=== PATIENT | female | born 1995 | race Caucasian/White ===

== ENCOUNTER → 2018-01-02 | Outpatient (CLI) | payer BC ==
[2018-01-02 18:46] LABS: PROGESTERONE 1.1 NG/ML
[2018-01-02 19:20] LABS: HCG, SERUM QUANTITATIVE 68 MIU/ML
== END ==
LOC: M SMT 12:11
DX: Z32.01 Encounter for pregnancy test, result positive (principal)
CPT/HCPCS: 84702

== ENCOUNTER → 2018-01-04 | Outpatient (CLI) | payer BC, OTHER ==
[2018-01-04 14:22] LABS: HCG, SERUM QUANTITATIVE 23 MIU/ML
== END ==
LOC: M SMT 09:56
DX: O20.9 Hemorrhage in early pregnancy, unspecified (principal); Z3A.00 Weeks of gestation of pregnancy not specified
CPT/HCPCS: 84702

== ENCOUNTER → 2018-02-27 | Outpatient (REF) | payer BC ==
[2018-02-27 13:24] LABS: HEMATOCRIT 44.1 % (36.0-47.0); HEMOGLOBIN 14.4 g/dl (12.0-15.5); MEAN CORPUSCULAR HEMOGLOBIN 28.7 pg (27.0-33.0); MEAN CORPUSCULAR HGB CONC 32.7 g/dl (32.0-36.5); MEAN CORPUSCULAR VOLUME 87.8 fl (80.0-96.0); PLATELET COUNT, AUTOMATED 237 10^3/uL (150-450); RED BLOOD COUNT 5.02 10^6/uL (4.00-5.40); RED CELL DISTRIBUTION WIDTH 14.7 % (11.5-14.5); WHITE BLOOD COUNT 7.5 10^3/uL (4.0-10.0)
[2018-02-28 11:30] LABS: RUBELLA IgG QUALITATIVE IMMUNE (IMMUNE)
[2018-02-28 11:43] LABS: HBsAg Prenatal NEGATIVE (NEGATIVE)
[2018-02-28 12:00] LABS: HIV 1&2 SCREEN CENTAUR NEGATIVE (NEGATIVE)
[2018-02-28 12:00] LABS: HEPATITIS C VIRUS ABY INDEX 0.1 INDEX (<0.8)
== END ==
LOC: M LAB REF 13:09
DX: O36.80X0 Pregnancy with inconclusive fetal viability, not applicable or unspecified (principal); Z3A.00 Weeks of gestation of pregnancy not specified

== ENCOUNTER → 2018-04-02 | Outpatient (REF) | payer BC ==
[2018-04-02 14:41] LABS: CHLAMYDIA DNA AMPLIFICATION NEGATIVE (NEGATIVE); GC DNA AMPLIFICATION NEGATIVE (NEGATIVE)
== END ==
LOC: M LAB REF 12:51
DX: Z34.81 Encounter for supervision of other normal pregnancy, first trimester (principal)
CPT/HCPCS: 87086

== ENCOUNTER 2018-05-24 14:21 | Emergency (ER) | payer BC ==
[2018-05-24 14:56] LABS: APPEARANCE, URINE HAZY (CLEAR); BACTERIA, URINE AUTO NEGATIVE (NEGATIVE); BILIRUBIN, URINE AUTO NEGATIVE (NEGATIVE); BLOOD, URINE BLOOD NEGATIVE (NEGATIVE); COLOR, URINE YELLOW (YELLOW); GLUCOSE, URINE (UA) AUTO NEGATIVE (NEGATIVE); KETONE, URINE AUTO 1+ mg/dL (NEGATIVE); LEUKOCYTE ESTERASE, URINE AUTO TRACE (NEGATIVE); MUCUS, URINE SMALL (NEGATIVE); NITRITE, URINE AUTO NEGATIVE (NEGATIVE); PROTEIN, URINE AUTO NEGATIVE (NEGATIVE); RBC, URINE AUTO 1 /HPF (0-3); SPECIFIC GRAVITY URINE AUTO 1.016 (1.002-1.035); SQUAMOUS EPITHELIAL CELL UR AU 3 /HPF (0-6); UROBILINOGEN, URINE AUTO 0.2 mg/dL (0.0-2.0); WBC, URINE AUTO 2 /HPF (0-3)
== END 2018-05-24 15:31 | disposition home or self-care (01) ==
LOC: M ED 14:21
DX: O9A.212 Injury, poisoning and certain other consequences of external causes complicating pregnancy, second trimester (principal); Y04.8XXA Assault by other bodily force, initial encounter; Y07.03 Male partner, perpetrator of maltreatment and neglect; Z3A.17 17 weeks gestation of pregnancy; O99.332 Smoking (tobacco) complicating pregnancy, second trimester; F17.210 Nicotine dependence, cigarettes, uncomplicated
CPT/HCPCS: 76811

== ENCOUNTER → 2018-08-22 | Outpatient (CLI) | payer BC ==
[2018-08-22 14:28] LABS: HEMATOCRIT 39.1 % (36.0-47.0); MEAN CORPUSCULAR HEMOGLOBIN 30.3 pg (27.0-33.0); MEAN CORPUSCULAR HGB CONC 33.2 g/dl (32.0-36.5); MEAN CORPUSCULAR VOLUME 91.1 fl (80.0-96.0); PLATELET COUNT, AUTOMATED 184 10^3/uL (150-450); RED BLOOD COUNT 4.29 10^6/uL (4.00-5.40)
== END ==
LOC: M LAB 12:56
PROVIDERS: ATTEND Obstetrics & Gynecology
DX: Z36.89 Encounter for other specified antenatal screening (principal)

== ENCOUNTER → 2018-10-02 | Outpatient (REF) | payer BC | LOC: M LAB REF 12:24 | PROVIDERS: ATTEND Obstetrics & Gynecology | DX: Z34.83 Encounter for supervision of other normal pregnancy, third trimester (principal) ==

== ENCOUNTER 2018-10-29 15:21 | Inpatient (IN) | payer BC ==
[2018-10-29] VITALS (27 sets, daily range): BP systolic 91–149; BP diastolic 51–89
[~2018-10-29] VITALS: Ht 157.5 cm; Wt 73.8 kg
[2018-10-29] MEDS ORDERED: OXYTOCIN DRIP 30 UNITS in APPROPRIATE DILUENT 1 EA IV SCH (16:00)
[2018-10-29] MEDS ORDERED: PRENTAB9 PO (16:14)
[2018-10-29 16:40] LABS: HEMATOCRIT 37.9 % (36.0-47.0); HEMOGLOBIN 12.4 g/dl (12.0-15.5); MEAN CORPUSCULAR HEMOGLOBIN 28.8 pg (27.0-33.0); MEAN CORPUSCULAR HGB CONC 32.7 g/dl (32.0-36.5); MEAN CORPUSCULAR VOLUME 87.9 fl (80.0-96.0); PLATELET COUNT, AUTOMATED 197 10^3/uL (150-450); RED BLOOD COUNT 4.31 10^6/uL (4.00-5.40); WHITE BLOOD COUNT 9.5 10^3/uL (4.0-10.0)
[2018-10-29] MEDS: LR 1,000 ML IV SCH (16:42)
--- NOTE | 2018-10-29 18:52 | HPEPDOC ---
Obstetrical History & Physical General Date of Admission Oct 29, 2018 at 17:30 Primary Care Physician: CHRIS SERRANO CNM History of Present Illness Patient is a 23-year-old female who is a at 39.1 weeks gestation with an SHIRA of 11/04/18 based off of her LMP and consistent with her 1st trimester ult rasound. She initiated care in her first trimester with [facility] and transferred care to [facility] at 38 weeks gestation. Her has been uncomplicated. She presented to L&D with complaints of SROM at 0300. She reported a moderate amount of clear fluid. She reports cramping and active movement. She denies vaginal bleeding. Chief Complaint: Active Labor, Rupture of membranes Information Provided By: Patient Age: 23 : 3 Term: 0 Pre-term: 0 Abortions: 2 Livin Care Care: Good Care Dating Final EDC: Nov 04, 2018 Final EDC by: LMP LMP: Jan 28, 2018 EGA at Admission: 39.1 Antepartum Course Height (inches): 62 Pre- weight (lbs.): 127 Admission Weight (lbs.): 168 Change in Weight (lbs.): 41 Past Medical History Past Obstetrical History : Past Obstetrical History: Primgravida CARE MANAGEMENT ASSISTANT History: Spontaneous , Theraputic Past Medical History Medical History varicose veins Surgical History: Denies/None Family History Significant Family History: Diabetes Social History Marital Status: Single Psychosocial History: No pertinent psych hx * Smoker: former Smoker Alcohol: Denies Drugs: denies Abuse Violence Screening Have you been hit/kicked/slapp: No Have you been sexually assault: No Imunizations Tdap status: current Influenza Status: current Allergies Coded Allergies: No Known Allergies (Unverified , 05/24/18) Medications Scheduled Multivitamins/ ( 27-0.8 mg) 1 Tab Tab, 1 TAB PO DAILY Physical Examination Physical Examination GENERAL: Alert and oriented times three. BREAST: . ABDOMEN: Gravid and non-tender to touch. FETUS: Is vertex (VTX) by sterile vaginal examination (SVE), fetus is vertex (VTX) by Dav. HEART RATE: Regular rate and rhythm. LUNGS: Clear to auscultation (CTA). EXTREMITIES: No edema. No clonus. Deep tendon reflexes (DTRs) + 2. Vital Signs/I&O Vital Signs Date Time Temp Pulse Resp B/P (MAP) Pulse Ox O2 Delivery O2 Flow Rate FiO2 10/29/18 18:09 98.8 70 16 118/70 (86) Laboratory Data 24H LABS Laboratory Tests 2 10/29/18 16:25: Nucleated Red Blood Cells % (auto) 0.0, Syphilis Serology NONREACTIVE 10/29/18 17:32: Serology Scanned Report Hepatitis B Testing CBC/BMP Laboratory Tests 10/29/18 16:25 Red Blood Count 4.31, Mean Corpuscular Volume 87.9, Mean Corpuscular Hemoglobin 28.8, Mean Corpuscular Hemoglobin Concent 32.7, Red Cell Distribution Width 14.4 Urine Culture: No Growth Pertinent Laboratoy Data Blood Type: O+ RBC Antibody Screen: Negative HIV: Negative Hepatitis B: Negative Hepatitis C: Negative Rapid Plasma Reagin: Nonreactive Rubella: Immune Chlamydia/Gonorrhea: Negative Group B Streptococcus: Negative Glucose Tolerance Test: 119 Vaginal Examination Dilation: 4 cm Effacement: other (75%) Station: -2 Cervical Consistency: Soft (Sterile speculum exam done: scant amount of clear fluid in vaginal canal. + nitrazine ) Cervical Position: Middle Presentation: Cephalic presentation Position: Vertex (occiput) Assessment Heart Rate (FHR): 150 Variability: Moderate Accelerations: Positive Decelerations: None Tocometer Contractions: Yes Frequency: every 1-5 min. Multi-drug resistant Organism: No history of MDRO Assessment/Plan Assessment IUP at 39.3 weeks gestation GBS negative SROM active labor GBS negative Plan Admit to L&D. Diet: clears. OOB ad diego. Group B Streptococcus (GBS) negative. Labs and intravenous (IV) per unit protocol. Counseled on augmentation of IV Pitocin. Lactated Ringers (LR): Bolus 800 mL, then at 125 mL/hr. Anesthesia consult per patient's request. Anticipate cervical change and .. CHRIS SERRANO CNM Oct 29, 2018 18:52
--- NOTE | 2018-10-29 19:00 | IPNPDOC ---
Obstetrical Progress Note Date of Service Oct 29, 2018 Subjective Patient reports she is cramping and feeling her contractions. Objective Vital Signs Date Time Temp Pulse Resp B/P (MAP) Pulse Ox O2 Delivery O2 Flow Rate FiO2 10/29/18 18:09 98.8 70 16 118/70 (86) Assessment Heart Rate (FHR): 140 Variability: Moderate Accelerations: Positive Decelerations: None Heart Rate Tracing: Category I Tocometer Contractions: Yes Frequency: regular Sterile Vaginal Examination Dilation: 4 cm (4-5 cm) Effacement (%): 80% Station: -1 Cervical Position: Anterior Postion/Presentation: Cephalic presentation Assessment and Plan Age: 23 : 3 Term: 0 Pre-term: 0 Abortions: 2 Livin EGA at Admission: 39.1 Status: Reassuring Group B Streptococcus: Negative Anticipate: Vaginal Delivery Additional Comments IV Pitocin is at 6 mu/min. AROM to forebag. Noted meconium fluid and a moderate amount of fluid. CHRIS SERRANO CNM Oct 29, 2018 19:00
[2018-10-29] MEDS ORDERED: FENTANYL 2MCG/ML ROPIVACAINE 0.2% IN 0.9% NACL 100ML IVBAG As Ordered ONE (19:32)
[2018-10-30] VITALS (20 sets, daily range): BP systolic 93–136; BP diastolic 55–80
[2018-10-30] MEDS ORDERED: REFRIGERATOR IV KEYS XX PRN (00:15)
[2018-10-30] MEDS ORDERED: ePHEDrine SULFATE 25 MG/5 ML(5MG/ML) SYRINGE IV PRN (00:15)
[2018-10-30] MEDS ORDERED: ONDANSETRON 4MG/2ML VIAL (J2405) IV PRN (00:15)
[2018-10-30] MEDS ORDERED: LACTATED RINGER'S 1000 ML IV PRN (00:15)
[2018-10-30] MEDS ORDERED: NALOXONE INJ 0.4 MG/1 ML VIAL (J2310) IV PRN (00:15)
[2018-10-30] MEDS ORDERED: FENTANYL/ROPIVACAINE/NACL BAG 100 ML EPIDURAL SCH (00:15)
[2018-10-30] MEDS ORDERED: diphenhydrAMINE INJ 50MG/ML VIAL (J1200) IV PRN (00:15)
[2018-10-30] MEDS ORDERED: EPIDURAL COMMENT XX SCH (00:15)
[2018-10-30] MEDS ORDERED: EPIDURAL/PCA KEYS XX PRN (00:15)
[2018-10-30] MEDS: LR 1,000 ML IV SCH (00:17)
[2018-10-30] MEDS ORDERED: CALCIUM CARBONATE 500 MG CHEW U/D PO PRN (02:15)
[2018-10-30] MEDS ORDERED: OXYTOCIN DRIP 30 UNITS in APPROPRIATE DILUENT 1 EA IV SCH (05:54)
[2018-10-30] MEDS ORDERED: MEASLES,MUMPS,RUBELLA VACCINE INJ (MMR-II) (90707) SC SCH (06:00)
[2018-10-30] MEDS ORDERED: DIBUCAINE 1% OINTMENT 30GM TOP PRN (06:00)
[2018-10-30] MEDS ORDERED: DOCUSATE SODIUM 100 MG CAP PO PRN (06:00)
[2018-10-30] MEDS ORDERED: RHOGAM 300 MCG (1500 IU) INJ (J2790) IM SCH (06:00)
[2018-10-30] MEDS ORDERED: METHYLERGONOVINE MALEATE 0.2 MG TAB PO PRN (06:00)
[2018-10-30] MEDS: ACETAMINOPHEN 500 MG TAB PO PRN ×2 (06:39→20:29)
[2018-10-30] MEDS ORDERED: METHYLERGONOVINE MALEATE 0.2 MG/ML VIAL (J2210) IM ONE (07:00)
--- NOTE | 2018-10-30 07:16 | DNPDOC ---
[facility] Delivery Note Delivery Note DATE OF DELIVERY: 10/30/2018 at 0447 PREDELIVERY DIAGNOSIS: 39-1/7 weeks' gestation and labor. POST DELIVERY DIAGNOSIS: Delivered. PROCEDURE: Spontaneous vaginal delivery. ELECTRONIC SCALE ASSEMBLER AND TESTER: Chris Lynch CNM, SOURAV ANESTHESIA: epidural. ESTIMATED BLOOD LOSS: 300 mL. FINDINGS: 7 pounds 2 ounces; 3240 grams; female , Score 9/9, meconium; SROM greater than 24 hours. DELIVERY SUMMARY: Patient is a 23-year-old female who is now a at 39.1 weeks who presented to L&D with complaints of SROM at 0300 on 10/29/18. Her labor was augmented with IV Pitocin. She received an epidural for pain management. It was noted that she had meconium. Dr. Haider was notified and was present for [facility]. She progressed to fully dilated at 0417 and pushed to a living female at 0447. The anterior shoulder delivered with ease and the corpus immediately followed. The baby was placed on the maternal abdomen active and crying. The cord was clamped after 1 minute and FOB cut the cord. A 3-vessel cord was noted. the baby was taken over to the warming table for Dr. Haider to access. The placenta was delivered spontaneously and intact at 0451. uterine hemostasis was achieved via rapid infusion of IV Pitocin and fundal massage. The vagina and perineum were inspected and found to have bilateral labial abrasions. The patient plans to breastfeed. She is naming her Symone. Both mom and baby are in stable condition. CHRIS LYNCH CNM Oct 30, 2018 07:16
[2018-10-30] MEDS: PRENATAL VITAMINS CHEWABLE TABLET PO SCH (09:00)
[2018-10-30] MEDS: IBUPROFEN 800 MG TAB PO PRN (16:19)
[2018-10-31 06:39] VITALS: BP 101/55
[2018-10-31] MEDS: PRENATAL VITAMINS CHEWABLE TABLET PO SCH (07:29)
[2018-10-31] MEDS: IBUPROFEN 800 MG TAB PO PRN (15:42)
[2018-10-31 18:00] VITALS: BP 123/72
[2018-11-01] MEDS: IBUPROFEN 800 MG TAB PO PRN (04:35)
[2018-11-01 06:46] VITALS: BP 94/50
[2018-11-01] MEDS ORDERED: IBUP-1114 PO (07:51)
[2018-11-01] MEDS ORDERED: MAPA500T2 PO (07:51)
[2018-11-01] MEDS: PRENATAL VITAMINS CHEWABLE TABLET PO SCH (09:54)
== END 2018-11-01 12:20 | disposition home or self-care (01) | DRG 560 ==
LOC: M LDO 15:21 → M LDI 17:30 → M OBS 10-30 08:25
PROVIDERS: ADMIT Advanced Practice Midwife; ATTEND Advanced Practice Midwife
PROC: 10E0XZZ Delivery of Products of Conception, External Approach (ICD-10-PCS; principal; 2018-10-30)
DX: O77.0 Labor and delivery complicated by meconium in amniotic fluid (principal); Z3A.39 39 weeks gestation of pregnancy; Z37.0 Single live birth

== ENCOUNTER 2018-11-23 22:11 | Emergency (ER) | payer BC ==
[~2018-11-23] VITALS: Ht 157.5 cm; Wt 63.6 kg
[~2018-11-23 22:11] MED LIST: IBUP-1114 PO; MAPA500T2 PO; PRENTAB9 PO
[2018-11-23 23:28] LABS: BASO # 0.1 10^3/uL (0.0-0.2); BASO % 0.5 % (0.0-1.0); EOS # 0.4 10^3/uL (0.0-0.50); EOS % 3.1 % (0.0-3.0); HEMATOCRIT 39.2 % (36.0-47.0); HEMOGLOBIN 12.6 g/dl (12.0-15.5); LYMPH # 3.7 10^3/uL (1.5-6.5); LYMPH % 32.9 % (24.0-44.0); MEAN CORPUSCULAR HEMOGLOBIN 28.3 pg (27.0-33.0); MEAN CORPUSCULAR HGB CONC 32.1 g/dl (32.0-36.5); MEAN CORPUSCULAR VOLUME 88.1 fl (80.0-96.0); MONO # 0.6 10^3/uL (0.0-0.8); MONO % 5.5 % (0.0-5.0); NEUTROPHILS # 6.5 10^3/uL (1.8-7.7); NEUTROPHILS % 57.7 % (36.0-66.0); PLATELET COUNT, AUTOMATED 271 10^3/uL (150-450); RED BLOOD COUNT 4.45 10^6/uL (4.00-5.40); WHITE BLOOD COUNT 11.3 10^3/uL (4.0-10.0)
[2018-11-23 23:40] LABS: INR 1.03; PROTHROMBIN TIME 13.6 SECONDS (12.1-14.4)
[2018-11-23 23:56] VITALS: BP 122/76
--- NOTE | 2018-11-24 00:07 | REPVR ---
EXAM: US Pelvis Complete, Transabdominal EXAM DATE/TIME: 11/23/2018 11:28 PM CLINICAL HISTORY: 23 years old, female; Signs and symptoms; Other: Vaginal bleeding; Additional info: Bleeding 3wks post TECHNIQUE: Imaging protocol: Real-time transabdominal pelvic ultrasound with image documentation. Complete exam. COMPARISON: US OBS SINGEL GEST 05/24/2018 2:53 PM FINDINGS: Uterus/cervix: The uterus measures 10.4 cm x 4.7 CM in AP dimension by 8.1 CM in transverse dimension. Within the endometrium there is complex material measures approximately 2 CM in thickness. There is a small amount of fluid. Echogenic material may be clotted blood and blood products. There is no evidence of vascularity within the endometrium. Small amount of retained products of conception could not be absolutely excluded. Right adnexa: Right ovary measures 3.3 CM in life by 1.2 CM in thickness. There is vascular flow of the right ovary. A small cyst is noted the right ovary measuring 8 mm. Left adnexa: The left ovary measures 3 CM in length by 1.5 CM in thickness. There is vascular flow of the left ovary. Free fluid: There is no evidence of free fluid within the pelvis. Bladder: The urinary bladder has only a small amount of urine. IMPRESSION: Complex material within the endometrium 2 CM in thickness. There is a small amount of fluid and also echogenic material which may be clotted blood. A small area of retained products of conception not excluded. There is no vascularity in the endometrial cavity. Electronically signed by: Dajuan Ricardo On 11/24/2018 00:06:34 AM
--- NOTE | 2018-11-27 14:21 | ED PDOC ---
Post-Departure Follow-Up vivienne venegas faxed formal report of pelvic us for fu Marcus Hu MD Nov 27, 2018 14:21
== END 2018-11-24 00:09 | disposition home or self-care (01) ==
LOC: M ED 22:11
DX: N93.8 Other specified abnormal uterine and vaginal bleeding (principal); Z72.0 Tobacco use

== ENCOUNTER 2018-11-24 13:48 | Emergency (ER) | payer BC ==
[~2018-11-24] VITALS: Ht 157.5 cm; Wt 64.1 kg
[2018-11-24 14:29] LABS: HEMATOCRIT 39.1 % (36.0-47.0); HEMOGLOBIN 12.4 g/dl (12.0-15.5); MEAN CORPUSCULAR HEMOGLOBIN 28.1 pg (27.0-33.0); MEAN CORPUSCULAR HGB CONC 31.7 g/dl (32.0-36.5); MEAN CORPUSCULAR VOLUME 88.5 fl (80.0-96.0); PLATELET COUNT, AUTOMATED 236 10^3/uL (150-450); RED BLOOD COUNT 4.42 10^6/uL (4.00-5.40); WHITE BLOOD COUNT 8.3 10^3/uL (4.0-10.0)
--- NOTE | 2018-11-24 15:21 | NUR ---
ENVIRONMENTAL HEALTH AND SAFETY LEADER Consult 23yo . S/p on 10/30/18. Uncomplicated delivery. Bilateral labial abrasions. No perineal lacerations, no uterine atony. Patient stopped bleeding shortly after her delivery/hospital discharge and went weeks without bleeding until yesterday. For the past two days, she has had a large amount of bleeding and passage of blood clots on a frequent basis. This is her second visit to the ER. During yesterday's visit, her vitals were normal/stable, CBC was wnl, and a pelvic US was negative for any evidence of retained products of conception. Vitals: Abd: soft, nt,nd, uterine fundus is firm and non-enlarged. Pelvic: NEFG. SSE: Moderate amount of dark blood from cervical os. No lacerations. Minimal bleeding from os with uterine fundal pressure. Bimanual: normal uterine size, shape, contour. AVAF. H/H: (essentially unchanged from yesterday) See yesterday's pelvic US report. A/P: 23yo with heavy menstruation s/p 3 weeks ago. No e/o significant anemia or retained POC. Will continue with expectant management. -Recommended starting LARC in the near future. Heavy smoking limits her safe options. -Pt will make outpatient appointment to discuss options. Abbie Nix DO
[2018-11-24 15:41] VITALS: BP 108/75
== END 2018-11-24 15:45 | disposition home or self-care (01) ==
LOC: M ED 13:48
DX: N93.8 Other specified abnormal uterine and vaginal bleeding (principal); F17.200 Nicotine dependence, unspecified, uncomplicated

== ENCOUNTER → 2019-03-27 | Outpatient (CLI) | payer BC | LOC: M LAB 18:36 | PROVIDERS: ATTEND Advanced Practice Midwife | DX: O20.0 Threatened abortion (principal) ==

== ENCOUNTER → 2019-03-29 | Outpatient (CLI) | payer BC | LOC: M LAB 17:09 | PROVIDERS: ATTEND Advanced Practice Midwife | DX: O20.0 Threatened abortion (principal) ==

== ENCOUNTER → 2019-11-28 | Outpatient (REF) | payer OTHER | LOC: M PLALAB 10:21 | PROVIDERS: ATTEND Advanced Practice Midwife | DX: Z36.89 Encounter for other specified antenatal screening (principal) ==

== ENCOUNTER → 2019-12-12 | Outpatient (CLI) | payer BC ==
[2019-12-12 16:19] LABS: BASO % 0.4 % (0.0-1.0); EOS # 0.1 10^3/uL (0.0-0.5); EOS % 0.9 % (0.0-3.0); HEMOGLOBIN 13.9 g/dl (12.0-15.5); LYMPH # 2.3 10^3/uL (1.5-5.0); LYMPH % 23.9 % (24.0-44.0); MEAN CORPUSCULAR HEMOGLOBIN 28.9 pg (27.0-33.0); MEAN CORPUSCULAR HGB CONC 33.1 g/dl (32.0-36.5); MEAN CORPUSCULAR VOLUME 87.3 fl (80.0-96.0); MONO # 0.6 10^3/uL (0.0-0.8); NEUTROPHILS # 6.6 10^3/uL (1.5-8.5); NEUTROPHILS % 68.5 % (36.0-66.0); PLATELET COUNT, AUTOMATED 240 10^3/uL (150-450); RED BLOOD COUNT 4.81 10^6/uL (4.00-5.40); WHITE BLOOD COUNT 9.6 10^3/uL (4.0-10.0)
[2019-12-12 17:19] LABS: CHLAMYDIA DNA AMPLIFICATION NEGATIVE (NEGATIVE); GC DNA AMPLIFICATION NEGATIVE (NEGATIVE)
[2019-12-13 11:39] LABS: HEPATITIS C VIRUS ABY INDEX 0.1 INDEX (<0.8); HIV 1&2 SCREEN CENTAUR NEGATIVE (NEGATIVE); RUBELLA IgG QUALITATIVE IMMUNE (IMMUNE)
== END ==
LOC: M WUC 12:37
PROVIDERS: ATTEND Advanced Practice Midwife
DX: Z34.81 Encounter for supervision of other normal pregnancy, first trimester (principal); Z36.89 Encounter for other specified antenatal screening

== ENCOUNTER → 2019-12-26 | Outpatient (CLI) | payer BC, SELFPAY | LOC: M WBI 15:03 | PROVIDERS: ATTEND Advanced Practice Midwife | DX: O30.041 Twin pregnancy, dichorionic/diamniotic, first trimester (principal) ==

== ENCOUNTER → 2019-12-30 | Outpatient (CLI) | payer BC | LOC: M PLALAB 13:20 | PROVIDERS: ATTEND Advanced Practice Midwife | DX: O30.001 Twin pregnancy, unspecified number of placenta and unspecified number of amniotic sacs, first trimester (principal); Z3A.00 Weeks of gestation of pregnancy not specified ==

== ENCOUNTER → 2020-04-29 | Outpatient (CLI) | payer BC ==
[~2020-04-29] MED LIST changes: +ACET-683 PO; +IBUP80TA PO
[2020-04-29 17:38] LABS: BASO % 0.3 % (0.0-1.0); EOS # 0.3 10^3/uL (0.0-0.5); EOS % 3.1 % (0.0-3.0); HEMATOCRIT 36.2 % (36.0-47.0); LYMPH # 2.1 10^3/uL (1.5-5.0); LYMPH % 19.6 % (24.0-44.0); MEAN CORPUSCULAR HGB CONC 30.4 g/dl (32.0-36.5); MEAN CORPUSCULAR VOLUME 88.9 fl (80.0-96.0); MONO # 0.7 10^3/uL (0.0-0.8); MONO % 6.8 % (0.0-5.0); NEUTROPHILS # 7.4 10^3/uL (1.5-8.5); NEUTROPHILS % 69.3 % (36.0-66.0); PLATELET COUNT, AUTOMATED 203 10^3/uL (150-450); RED BLOOD COUNT 4.07 10^6/uL (4.00-5.40); WHITE BLOOD COUNT 10.7 10^3/uL (4.0-10.0)
== END ==
LOC: M PLALAB 13:31
PROVIDERS: ATTEND Advanced Practice Midwife
DX: O30.042 Twin pregnancy, dichorionic/diamniotic, second trimester (principal)

== ENCOUNTER → 2020-06-04 | Outpatient (REF) | payer BC ==
[~2020-06-04] MED LIST changes: -ACET-683 PO; -IBUP80TA PO
== END ==
LOC: M SFHCWAGY 16:41
PROVIDERS: ATTEND Advanced Practice Midwife
DX: O30.043 Twin pregnancy, dichorionic/diamniotic, third trimester (principal)

== ENCOUNTER → 2020-06-18 | Outpatient (CLI) | payer BC ==
[~2020-06-18] MED LIST changes: +ACET-683 PO; +IBUP80TA PO
--- NOTE | 2020-06-20 13:58 | REP ---
INDICATION: IUGR,GROWTH,BPP W/CORD DOPPLERS Twin gestation. COMPARISON: 06/17/2020, 05/26/2020 TECHNIQUE: Transabdominal obstetrical ultrasound with color Doppler evaluation. FINDINGS: Examination demonstrates advanced twin gestation. Cervix appears closed. Gestational age by LMP at 35 weeks 6 days with estimated date of delivery 07/17/2020. TWIN A: Twin A identified in cephalic presentation along the maternal right side. Placenta is noted anterior and grade 2 without evidence for placenta previa or abruption. motion is appreciated. Amniotic fluid volume is normal and the deepest pocket measures 4.9 cm. FHR equals 142 beats per minute. Gestational age by current measurements: 34 weeks 6 days. Estimated weight 2715 grams (43rd percentile). TWIN B: Twin B identified in breech presentation along the maternal lower left side. Placenta is noted anterior and grade 2 without evidence for placenta previa or abruption. motion is appreciated. Amniotic fluid volume is normal and the deepest pocket measures 4.7 cm. FHR equals 152 beats per minute. Biophysical profile score: 8/8 Gestational age by current measurements: 32 weeks 2 days. Estimated weight 2009 grams (less than 3rd percentile). IMPRESSION: Advanced twin twin gestation demonstrating discordant growth. <Electronically signed by Fabio Cat > 06/20/20 [id number]
== END ==
LOC: M WHC 11:27
PROVIDERS: ATTEND Advanced Practice Midwife
DX: O36.5932 Maternal care for other known or suspected poor fetal growth, third trimester, fetus 2 (principal); Z3A.34 34 weeks gestation of pregnancy; Z3A.35 35 weeks gestation of pregnancy

== ENCOUNTER → 2020-06-22 | Outpatient (CLI) | payer BC ==
--- NOTE | 2020-06-22 15:00 | REP ---
INDICATION: TWIN GESTATION,BPP W/CORD DOPPLERS. COMPARISON: 06/18/2020. TECHNIQUE: Real-time sonographic evaluation of gravid uterus performed. FINDINGS: There is a living intrauterine twin gestation, estimated gestational age 36 weeks 3 days, EDC 07/17/2020. Fetus a: position cephalic on the right. Placenta anterior and grade 2 with no previa. heart rate 139 beats per minute. Amniotic fluid appears within normal limits. Biophysical profile not performed for fetus a. Fetus B: position breech on the maternal left side. Placenta anterior grade 2 with no previa. heart rate 144 beats per minute. Amniotic fluid within normal limits. Bowel physical profile score 8/8. SD ratio milk or artery 2.1-2.4, within normal range. RI 0.53-0.57, within normal range. Cervix is closed and measures 3.3 cm in length. IMPRESSION: Biophysical profile score fetus B 8/8. <Electronically signed by Silvino Horne > 06/22/20 1520
== END ==
LOC: M WHC 13:14
PROVIDERS: ATTEND Advanced Practice Midwife
DX: O36.5932 Maternal care for other known or suspected poor fetal growth, third trimester, fetus 2 (principal)

== ENCOUNTER → 2020-06-26 | Outpatient (CLI) | payer BC ==
--- NOTE | 2020-06-26 16:02 | REP ---
INDICATION: TWIN GESTATION,BPP W/CORD DOPPLERS. Limited study. COMPARISON: June 22, 2020.. TECHNIQUE: Transabdominal scanning. FINDINGS: Twin intrauterine gestation is again noted. Fetus A is cephalic along the maternal right side and fetus B breech along the maternal left. heart rate for fetus A is 147 beats per minute and that for twin B is recorded at 144 beats per minute. Amniotic fluid is subjectively normal. The deepest pocket surrounding twin A measures 7.5 cm in that surrounding twin B 7.7 cm. Three-vessel cord are noted. Anterior grade 2 placenta is seen without evidence of previa. Biophysical profile score for fetus B is 8 out of a possible 8. SD ratio of the umbilical artery for fetus B is normal at 2.20. Closed cervical length measured transabdominally is 3.1 cm. IMPRESSION: Limited obstetric sonography: Twin gestation. <Electronically signed by Leonides Hirsch > 06/26/20 [id number]
== END ==
LOC: M WHC 10:56
PROVIDERS: ATTEND Advanced Practice Midwife
DX: O36.5932 Maternal care for other known or suspected poor fetal growth, third trimester, fetus 2 (principal); Z3A.00 Weeks of gestation of pregnancy not specified

== ENCOUNTER 2020-06-29 13:15 | Inpatient (IN) | payer BC ==
[2020-06-29] VITALS (9 sets, daily range): BP systolic 118–150; BP diastolic 53–86
[~2020-06-29] VITALS: Ht 157.5 cm; Wt 79.3 kg
[~2020-06-29 13:15] MED LIST changes: -ACET-683 PO; -IBUP80TA PO
[2020-06-29] MEDS ORDERED: LACTATED RINGER'S 1000 ML IV STA (13:30)
[2020-06-29] MEDS ORDERED: LR 1,000 ML IV SCH (13:55)
[2020-06-29] MEDS ORDERED: OXYTOCIN DRIP 30 UNITS in IV 1 EA IV SCH (14:00)
--- NOTE | 2020-06-29 14:38 | HPEPDOC ---
Obstetrical History & Physical General Date of Admission Jun 29, 2020 at 13:15 Primary Care Physician: CHRIS SERRANO CNM History of Present Illness Yudith is a 25 y/o at 37.3 weeks EGA (SHIRA 07/17/20) by 1st trimester ultrasound at 6.5 weeks (11/28/19) with a Di/Di Twin . She started her care at [facility] in the first trimester. History significant for IUGR of Twin B at 35.5weeks gestation <3% and potential fused anterior placenta. She was also started on Zoloft 50mg daily for depression in the first trimester. She presents today for IOL for Di/Di twins, IUGR of Twin B. Bedside ultrasound shows Twin A vertex and Twin B breech. Reports good movement x2, intermittent contractions. Denies LOF, vaginal bleeding. Chief Complaint: Induction of labor (Twin B IUGR <3%) Information Provided By: Patient Age: 25 : 4 Term: 1 Pre-term: 0 Abortions: 2 Livin Care Care: Good Care Dating Final EDC: Jul 17, 2020 Final EDC by: 1st trimester (US) LMP: Oct 06, 2019 1st Trimester Date: Nov 28, 2019 Weeks + Days: 6.5 EGA at Admission: 37.3 Antepartum Course Diagnos(e)s Di/Di Twin with potential fused placenta, anterior. IUGR <3% at 35.5weeks Depression, Zoloft in 1st trimester Pre- weight (lbs.): 134 Past Medical History Past Obstetrical History #1: Past Obstetrical History: Primgravida Date of Delivery: Oct 30, 2018 Gestation: 39.2 Type of Delivery: Spontaneous Vaginal Del. Sex of Infant: Female (7lb 2oz.) Complications: Yes (meconium stained fluid) Past Obstetrical History #2: Past Obstetrical History: Multigravida (Current ) B2B MANAGED SERVICE SALES EXEC History: Spontaneous (SAB 2017, IAB 2013) Past Medical History Medical History Varicose Veins Depression, on Zoloft Surgical History: Denies/None Family History Significant Family History: Diabetes Social History Marital Status: Family situation: Spouse/partner home Psychosocial History: Depression * Smoker: non-smoker Alcohol: Denies Drugs: denies Imunizations Tdap status: declined Influenza Status: declined Allergies Coded Allergies: No Known Allergies (Unverified , 05/24/18) Physical Examination Physical Examination GENERAL: Alert and oriented times three. ABDOMEN: Gravid and non-tender to touch. FETUS A: Vertex by bedside sonogram and SVE, 135bpm baseline, moderate variability, positive accelerations, no decelerations, Cat 1 FETUS B: Breech by bedside sonogram, 140bpm baseline, moderate variability, positive accelerations, no decelerations, Cat 1 UTERUS: UC irregular, 3-14min by toco, resting tone palpates soft. HEART RATE: Regular rate and rhythm. LUNGS: Clear to auscultation (CTA) bilaterally. EXTREMITIES: No edema. No clonus. Deep tendon reflexes (DTRs) + 2. Laboratory Data 24H LABS Laboratory Tests 2 06/29/20 13:31: Serology Scanned Report Hepatitis B Testing Pertinent Laboratoy Data Blood Type: O+ RBC Antibody Screen: Negative HIV: Negative Hepatitis B: Negative Hepatitis C: Negative Rapid Plasma Reagin: Nonreactive Rubella: Immune Chlamydia/Gonorrhea: Negative Group B Streptococcus: Negative Glucose Tolerance Test: 122 Diag/Inter Therapy Panorama -- Low Risk Fraternal Males Steroid Therapy Steroid Therapy: No Vaginal Examination Dilation: 4 cm (4-5) Effacement: other (75) Station: -2 Cervical Consistency: Soft Cervical Position: Middle Presentation: Cephalic presentation (on SVE and Sono) Tocometer Contractions: Yes Assessment/Plan Assessment Di/Di Twin at 37.3 weeks IOL for Twin B IUGR <3% GBS negative Cat 1 FHR tracings x2 Plan Admit and orient to Labor and Delivery Diet: Clear liquids. Group B Streptococcus (GBS) negative. Labs and intravenous (IV) per unit protocol. Counseled on Pitocin and induction of labor (IOL). Consult Anesthesia, plans on epidural for labor pain management. Lactated Ringers (LR): Bolus 800 mL prior to epidural, then 125mL/hr. Anticipate normal spontaneous delivery (). C-S as appropriate. CHRIS SERRANO CNM Jun 29, 2020 14:37
[2020-06-29 15:17] LABS: HEMATOCRIT 35.8 % (36.0-47.0); HEMOGLOBIN 10.4 g/dl (12.0-15.5); MEAN CORPUSCULAR HEMOGLOBIN 23.3 pg (27.0-33.0); MEAN CORPUSCULAR HGB CONC 29.1 g/dl (32.0-36.5); MEAN CORPUSCULAR VOLUME 80.1 fl (80.0-96.0); PLATELET COUNT, AUTOMATED 187 10^3/uL (150-450); RED BLOOD COUNT 4.47 10^6/uL (4.00-5.40); WHITE BLOOD COUNT 8.4 10^3/uL (4.0-10.0)
[2020-06-29] MEDS ORDERED: ACETAMINOPHEN 500 MG TAB PO PRN (18:15)
[2020-06-29] MEDS ORDERED: FENTANYL 2MCG/ML ROPIVACAINE 0.2% IN 0.9% NACL 100ML IVBAG As Ordered ONE (19:32)
[2020-06-29] MEDS ORDERED: ePHEDrine SULFATE 25 MG/5 ML(5MG/ML) SYRINGE IV PRN (21:00)
[2020-06-29] MEDS ORDERED: REFRIGERATOR IV KEYS XX PRN (21:00)
[2020-06-29] MEDS ORDERED: NALOXONE INJ 0.4MG/1ML VIAL (J2310 PER 1MG) IV PRN (21:00)
[2020-06-29] MEDS ORDERED: LACTATED RINGER'S 1000 ML IV PRN (21:00)
[2020-06-29] MEDS ORDERED: ONDANSETRON 4MG/2ML VIAL IV PRN (21:00)
[2020-06-29] MEDS ORDERED: EPIDURAL COMMENT XX SCH (21:00)
[2020-06-29] MEDS ORDERED: EPIDURAL/PCA KEYS XX PRN (21:00)
[2020-06-29] MEDS: FENTANYL/ROPIVACAINE/NACL BAG 100 ML EPIDURAL SCH (21:00)
[2020-06-29] MEDS ORDERED: diphenhydrAMINE 50MG/ML VIAL (J1200) IV PRN (21:00)
[2020-06-29] MEDS ORDERED: TERBUTALINE SULFATE 1 MG/ML VIAL (J3105) As Ordered ONE (23:42)
[2020-06-30] MEDS ORDERED: OXYTOCIN DRIP 30 UNITS in IV 1 EA IV SCH (00:25)
[2020-06-30] MEDS ORDERED: ACETAMINOPHEN 500 MG TAB PO PRN (00:30)
[2020-06-30] MEDS ORDERED: DIBUCAINE 1% OINTMENT 30GM TOP PRN (00:30)
[2020-06-30] MEDS ORDERED: ANUSOL HC CREAM 30GM TOP PRN (00:30)
[2020-06-30] MEDS ORDERED: ACETAMINOPHEN TAB 650MG DOSE (2X325MG) PO PRN (00:30)
[2020-06-30] MEDS ORDERED: METHYLERGONOVINE MALEATE 0.2 MG TAB PO PRN (00:30)
[2020-06-30] MEDS ORDERED: MEASLES,MUMPS,RUBELLA VACCINE INJ (MMR-II) (90707) SC SCH (00:30)
[2020-06-30] MEDS ORDERED: IBUPROFEN 600MG TAB PO PRN (00:30)
[2020-06-30] MEDS ORDERED: DOCUSATE SODIUM 100 MG CAP PO PRN (00:30)
[2020-06-30] MEDS ORDERED: RHOGAM 300 MCG (1500 IU) INJ (J2790) IM SCH (00:30)
[2020-06-30] MEDS ORDERED: PERCOCET 5MG/325MG TAB PO ONE ×2 (00:45→21:30)
[2020-06-30] MEDS ORDERED: AMPICILLIN SOD/SULBACTAM SOD 3 GM in D5W MINI-BAG PLUS 100 ML IV ONE (01:00)
[2020-06-30] MEDS: IBUPROFEN 800 MG TAB PO PRN ×2 (01:00→09:19)
--- NOTE | 2020-06-30 01:26 | DNPDOC ---
[facility] Delivery Note Delivery Note DATE OF DELIVERY: Twin A 06/29/20 @ 2332 Twin B 06/29/20 @ 2350 PREDELIVERY DIAGNOSIS: 37-3/7 weeks' gestation, IOL for Di/Di Twins, Twin B <3% IUGR POST DELIVERY DIAGNOSIS: Delivered. PROCEDURE: Spontaneous vaginal delivery x2 PROVIDERS: Chris Lynch CNM, SOURAV, TUSHAR Kelley, Susan Bermudez MD ANESTHESIA: Epidural. ESTIMATED BLOOD LOSS: 900 mL. FINDINGS: Twin A: 6 pound 3 ounce, 2820g Male , Score 9/9, tight nuchal cord times x1 then wrapped around the body. Twin B: 4 pound 9 ounce, 2080g Male infant, Score 9/9, IUGR. Retained placenta, manually removed. DELIVERY SUMMARY: Patient is a 25-year-old 4 now para 2-0-2-3 who was admitted to labor and delivery for IOL for Di/Di twin with Twin B IUGR <3%, noted at 35.5weeks. She was started on Pitocin for IOL, she received an epidural for labor pain management. AROM of Twin A at 2135 for moderate amount of clear fluid. She progressed to 9cm and she was moved to the OR for delivery. Dr. Bermudez present in OR prior to pushing of Twin A. She began pushing in the OR and delivered Twin A, head delivered in OA with restitution to ROT, anterior shoulder and corpus followed with ease. Infant somersaulted and tight nuchal and body cord reduced after delivery of infant. placed skin to skin on maternal abdomen. Cord clamped x2 and cut by CNM. Cord blood collected. Pitocin was shut off after of Twin A. External version of Twin B was implemented by Dr. Bermudez with ultrasound guidance. Moderate amount of bleeding/clots prior to successful version of Twin B. Twin B was verted to vertex by Dr. Bermudez and AROM for large amount of clear fluid of Twin B was at [address] Bermudez. descended quickly with maternal pushing efforts and Twin B delivered in OA position with anterior shoulder and corpus following with ease. Infant placed skin to skin on maternal abdomen. Cord clamped x2 and cut by SNM. Cord blood collected. Primarily intact placentas delivered spontaneously at 2350, matheus mechanism. Uterine sweep done and a small segment of placenta removed manually, will treat with Unasyn 3g IV for prophylaxsis. Placentas appear to be fused, sent to pathology. Fundal massage and IV Pitocin bolus initiated. Fundus firmed to umbilicus with small amount of lochia. Vagina, perineum, and cervix examined for lacerations and noted to be intact. Sponges, instruments, and sharps counted and correct. CBC was ordered for the morning. CHRIS LYNCH CNM Jun 30, 2020 01:26
[2020-06-30 03:41] VITALS: BP 135/77
[2020-06-30 06:34] LABS: HEMATOCRIT 24.4 % (36.0-47.0); MEAN CORPUSCULAR HEMOGLOBIN 23.4 pg (27.0-33.0); MEAN CORPUSCULAR HGB CONC 29.1 g/dl (32.0-36.5); MEAN CORPUSCULAR VOLUME 80.3 fl (80.0-96.0); PLATELET COUNT, AUTOMATED 155 10^3/uL (150-450); RED BLOOD COUNT 3.04 10^6/uL (4.00-5.40); WHITE BLOOD COUNT 14.1 10^3/uL (4.0-10.0)
[2020-06-30 06:37] LABS: HEMOGLOBIN 7.1 g/dl (12.0-15.5)
[2020-06-30] MEDS: FENTANYL/ROPIVACAINE/NACL BAG 100 ML EPIDURAL SCH (07:00)
--- NOTE | 2020-06-30 07:18 | IPNPDOC ---
Progress Note Date of Service: Jun 30, 2020 Day#: 1 Progress Note SUBJECT: Yudith is a 25-year-old 4 now Para 2-0-2-3 status post spontaneous vaginal delivery of Di/Di Twins over an intact perineum, doing well day # 1. She has been ambulating, voiding spontaneously without issue and tolerating regular diet. Will start pumping today. Reports lochia is like a normal period. Reports some cramping, pain well controlled with Tylenol and Motrin. Both infants doing well and are rooming in. OBJECTIVE: VITAL SIGNS: Within normal limits, afebrile. Alert and oriented times three. RESPIRATORY: Rate regular, no accessory muscle use Abdomen: Fundus firm at U. Soft, NTTP. Minimal lochia. Extremities: No edema, no calf tenderness. ASSESSMENT: Day 1 PLAN: 1. Anticipate discharge home tomorrow. 2. Tylenol and Motrin for pain. 3. Encourage pumping and ambulation. VS, I&O, 24H, Fishbone Vital Signs/I&O Vital Signs Date Time Temp Pulse Resp B/P (MAP) Pulse Ox O2 Delivery O2 Flow Rate FiO2 06/30/20 03:41 99.2 135 18 135/77 (96) 99 06/29/20 15:46 Room Air I&O- Last 24 Hours up to 6 AM 06/30/20 06:00 Intake Total 2220 ml Output Total 2040 ml Balance 180 ml Laboratory Data 24H LABS Laboratory Tests 2 06/29/20 13:31: Serology Scanned Report Hepatitis B Testing 06/29/20 14:57: Nucleated Red Blood Cells % (auto) 0.2H, Syphilis Serology NONREACTIVE 06/30/20 06:07: Nucleated Red Blood Cells % (auto) 0.1H CBC/BMP Laboratory Tests 06/29/20 14:57 06/30/20 06:07 CHRIS SERRANO CNM Jun 30, 2020 07:18
[2020-06-30] MEDS: PRENATAL VITAMINS CHEWABLE TABLET PO SCH (09:19)
[2020-06-30 18:00] VITALS: BP 115/73
[2020-07-01 05:58] VITALS: BP 108/51
[2020-07-01] MEDS ORDERED: ACET-683 PO (06:39)
[2020-07-01] MEDS ORDERED: IBUP80TA PO (06:39)
[2020-07-01] MEDS: IBUPROFEN 800 MG TAB PO PRN (06:43)
[2020-07-01] MEDS: PRENATAL VITAMINS CHEWABLE TABLET PO SCH (12:13)
== END 2020-07-01 15:45 | disposition home or self-care (01) | DRG 541 ==
LOC: M LDI 13:15 → M OBS 06-30 03:31
PROVIDERS: ADMIT Advanced Practice Midwife; ATTEND Advanced Practice Midwife
PROC: 10E0XZZ Delivery of Products of Conception, External Approach (ICD-10-PCS; principal; 2020-06-29)
PROC: 10D17Z9 Manual Extraction of Products of Conception, Retained, Via Natural or Artificial Opening (ICD-10-PCS; 2020-06-29)
PROC: 3E033VJ Introduction of Other Hormone into Peripheral Vein, Percutaneous Approach (ICD-10-PCS; 2020-06-29)
PROC: 10907ZC Drainage of Amniotic Fluid, Therapeutic from Products of Conception, Via Natural or Artificial Opening (ICD-10-PCS; 2020-06-29)
DX: O36.5932 Maternal care for other known or suspected poor fetal growth, third trimester, fetus 2 (principal); O30.043 Twin pregnancy, dichorionic/diamniotic, third trimester; Z37.2 Twins, both liveborn; O72.2 Delayed and secondary postpartum hemorrhage; O69.2XX1 Labor and delivery complicated by other cord entanglement, with compression, fetus 1; Z3A.37 37 weeks gestation of pregnancy

== ENCOUNTER 2022-04-19 20:41 | Emergency (ER) | payer BC, SELFPAY ==
[~2022-04-19] VITALS: Ht 157.5 cm; Wt 52.3 kg
[~2022-04-19 20:41] MED LIST changes: +ACET-683 PO; +IBUP80TA PO
[2022-04-19 20:43] VITALS: BP 166/77
== END 2022-04-20 01:30 | disposition left against medical advice (07) ==
LOC: M ED 20:41
DX: Z53.21 Procedure and treatment not carried out due to patient leaving prior to being seen by health care provider (principal)

== ENCOUNTER 2024-02-09 20:18 | Emergency (ER) | payer SELFPAY ==
[~2024-02-09] VITALS: Ht 157.5 cm; Wt 56.8 kg
[2024-02-09 20:19] VITALS: BP 110/69; TEMP 98.3; O2SAT 100
== END 2024-02-09 23:55 | disposition left against medical advice (07) ==
LOC: M ED 20:18
DX: Z53.21 Procedure and treatment not carried out due to patient leaving prior to being seen by health care provider (principal)